=== PATIENT | female | born 1970 | race African-American/Black ===

== ENCOUNTER 2018-04-30 03:21 | Emergency (ER) | payer BC, OTHER ==
[~2018-04-30] VITALS: Ht 165.1 cm; Wt 81.2 kg
[2018-04-30 03:28] VITALS: Ht 165.1 cm; Wt 81.2 kg
[2018-04-30 04:25] VITALS: BP 132/78
== END 2018-04-30 04:25 | disposition home or self-care (01) ==
LOC: ED 03:21
DX: S63.602A Unspecified sprain of left thumb, initial encounter (principal); M06.9 Rheumatoid arthritis, unspecified; I10 Essential (primary) hypertension; X50.0XXA Overexertion from strenuous movement or load, initial encounter; X50.9XXA Other and unspecified overexertion or strenuous movements or postures, initial encounter; Y93.89 Activity, other specified; Y92.89 Other specified places as the place of occurrence of the external cause; Y99.8 Other external cause status